=== PATIENT | female | born 1990 | race Caucasian/White ===

== ENCOUNTER 2017-10-29 13:37 | Emergency (ER) | payer BC ==
[2017-10-29] MEDS ORDERED: MAG HYDROX/AL HYDROX/SIMETH 30 ML, HYOSCYAMINE ELIXIR 10 ML, CIMETIDINE HCL 300 MG, LID... PO STA ×4 (14:15)
--- NOTE | 2017-10-29 14:19 | ED ---
Abdominal Pain HPI - General Chief Complaint: Abdominal Pain Stated Complaint: abdominal pain Time Seen by Provider: 10/29/17 14:07 Source: patient Mode of arrival: ambulatory Limitations: no limitations - History of Present Illness Initial Comments: This 27-year-old white female presents with a complaint of some midepigastric abdominal pain which started at approximately 6 AM. She said that it has been intermittent in nature and feels like contractions. She denies any nausea, vomiting, diarrhea, constipation, urinary frequency, urgency, dysuria, hematuria. She denies any fevers or chills. She denies any previous similar incidents. She states that it is somewhat worse with food intake. She denies any nonsteroidal anti-inflammatory use or alcohol use. She has not changed her diet recently. She did try some Maalox with limited relief. No other complaints or modifying factors. - Related Data Previous Rx's Medication Instructions Recorded Omeprazole [PriLOSEC] 40 mg PO DAILY #30 capsule. 10/29/17 Ondansetron [Zofran ODT] 8 mg PO Q8HR PRN #12 tab 10/29/17 traMADol HCl [Ultram] 50 - 100 mg PO Q6H PRN #15 tab 10/29/17 Allergies Allergy/AdvReac Type Severity Reaction Status Date / Time No Known Allergies Allergy Verified 10/29/17 14:22 Review of Systems ROS Statement: Those systems with pertinent positive or pertinent negative responses have been documented in the HPI. ROS Other: All systems not noted in ROS Statement are negative. Past Medical History Past Medical History: No Reported History History of Any Multi-Drug Resistant Organisms: None Reported Past Surgical History: No Surgical Hx Reported Past Anesthesia/Blood Transfusion Reactions: No Reported Reaction Past Psychological History: No Psychological Hx Reported Smoking Status: Never smoker Past Alcohol Use History: None Reported Past Drug Use History: None Reported - Past Family History Mother Family Medical History: No Reported History General Exam - General Exam Comments Initial Comments: GENERAL: The patient is well nourished and well hydrated. VITAL SIGNS: Heart rate, blood pressure, respiratory rate reviewed as recorded in nurse's notes. EYES: Pupils are round and reactive. Extraocular movements are intact. No conjunctival / lid redness or swelling. ENT: No external evidence of injury, swelling, or ecchymosis. Airway is patent. Throat is clear. NECK: Nontender. No swelling or evidence of injury. No subcutaneous emphysema. Trachea is midline. No thyroid mass. HEART: Regular rate and rhythm. Good peripheral pulses. LUNGS/CHEST: Breath sounds clear and equal bilaterally. No rales, rhonchi, or wheezes. No ecchymosis, subcutaneous emphysema, or tenderness. ABDOMEN: There is mild tenderness in the midepigastric region. No palpable masses or organomegaly. No peritoneal signs. No abdominal wall swelling or ecchymosis. No flank tenderness noted. EXTREMITIES: No extremity tenderness. Normal muscle tone and function. No thoracolumbar tenderness. NEUROLOGIC: Sensation is grossly intact. Cranial nerve exam reveals face is symmetrical, tongue is midline, speech is clear. SKIN: No abrasions or ecchymosis is noted. No induration or masses noted. PSYCHIATRIC: Alert and oriented. Appropriate behavior and judgment. Limitations: no limitations Course Vital Signs 10/29/17 10/29/17 13:39 14:40 Temperature 98.0 F Pulse Rate 64 54 L Respiratory 20 Rate Blood Pressure 135/92 118/67 O2 Sat by Pulse 100 99 Oximetry Medical Decision Making - Medical Decision Making The patient was seen and examined. All diagnostics are reviewed. She does receive a GI cocktail. The differential would include such things as gastritis , gastroesophageal reflux disorder, peptic ulcer disease, pancreatitis, gallbladder disease. The laboratory overall is fairly unremarkable with a slight elevation of the sodium at 146. The gallbladder ultrasound does show a contracted gallbladder but the radiologist as suspect multiple stones. There is no gallbladder wall thickening or dilated common bile duct. It is felt as though her symptoms very likely are related to gallstones. The possibility of a gastritis is certainly possible as well. She is in no distress on recheck. It is felt as though she would benefit from follow-up on an outpatient basis with general surgery and will be referred. She understands agrees with findings disposition and leaves in no distress. Return parameters are discussed. Diet therapy is discussed. - Lab Data Result diagrams: 10/29/17 14:28 10/29/17 14:28 Lab Results 10/29/17 10/29/17 10/29/17 Range/Units 14:28 14:28 14:28 WBC 11.8 H (3.8-10.6) k/uL RBC 5.00 (3.80-5.40) m/uL Hgb 13.5 (11.4-16.0) gm/dL Hct 42.9 (34.0-46.0) % MCV 85.8 (80.0-100.0) fL MCH 27.1 (25.0-35.0) pg MCHC 31.6 (31.0-37.0) g/dL RDW 13.7 (11.5-15.5) % Plt Count 454 H (150-450) k/uL Neutrophils % 75 % Lymphocytes % 18 % Monocytes % 3 % Eosinophils % 2 % Basophils % 0 % Neutrophils # 8.9 H (1.3-7.7) k/uL Lymphocytes # 2.1 (1.0-4.8) k/uL Monocytes # 0.4 (0-1.0) k/uL Eosinophils # 0.3 (0-0.7) k/uL Basophils # 0.1 (0-0.2) k/uL Sodium 146 H (137-145) mmol/L Potassium 4.3 (3.5-5.1) mmol/L Chloride 105 (98-107) mmol/L Carbon Dioxide 25 (22-30) mmol/L Anion Gap 16 mmol/L BUN 12 (7-17) mg/dL Creatinine 0.80 (0.52-1.04) mg/dL Est GFR (CKD-EPI)AfAm >90 (>60 ml/min/1.73 sqM) Est GFR (CKD-EPI)NonAf >90 (>60 ml/min/1.73 sqM) Glucose 80 (74-99) mg/dL Calcium 11.0 H (8.4-10.2) mg/dL Total Bilirubin 0.4 (0.2-1.3) mg/dL AST 23 (14-36) U/L ALT 18 (9-52) U/L Alkaline Phosphatase 54 (38-126) U/L Total Protein 9.1 H (6.3-8.2) g/dL Albumin 5.4 H (3.5-5.0) g/dL Amylase 84 (30-110) U/L Lipase 111 (23-300) U/L Urine Color Urine Appearance (Clear) Urine pH (5.0-8.0) Ur Specific [place] (1.001-1.035) Urine Protein (Negative) Urine Glucose (UA) (Negative) Urine Ketones (Negative) Urine Blood (Negative) Urine Nitrite (Negative) Urine Bilirubin (Negative) Urine Urobilinogen (<2.0) mg/dL Ur Leukocyte Esterase (Negative) Urine HCG, Qual Not Detected (Not Detectd) 10/29/17 Range/Units 14:28 WBC (3.8-10.6) k/uL RBC (3.80-5.40) m/uL Hgb (11.4-16.0) gm/dL Hct (34.0-46.0) % MCV (80.0-100.0) fL MCH (25.0-35.0) pg MCHC (31.0-37.0) g/dL RDW (11.5-15.5) % Plt Count (150-450) k/uL Neutrophils % % Lymphocytes % % Monocytes % % Eosinophils % % Basophils % % Neutrophils # (1.3-7.7) k/uL Lymphocytes # (1.0-4.8) k/uL Monocytes # (0-1.0) k/uL Eosinophils # (0-0.7) k/uL Basophils # (0-0.2) k/uL Sodium (137-145) mmol/L Potassium (3.5-5.1) mmol/L Chloride (98-107) mmol/L Carbon Dioxide (22-30) mmol/L Anion Gap mmol/L BUN (7-17) mg/dL Creatinine (0.52-1.04) mg/dL Est GFR (CKD-EPI)AfAm (>60 ml/min/1.73 sqM) Est GFR (CKD-EPI)NonAf (>60 ml/min/1.73 sqM) Glucose (74-99) mg/dL Calcium (8.4-10.2) mg/dL Total Bilirubin (0.2-1.3) mg/dL AST (14-36) U/L ALT (9-52) U/L Alkaline Phosphatase (38-126) U/L Total Protein (6.3-8.2) g/dL Albumin (3.5-5.0) g/dL Amylase (30-110) U/L Lipase (23-300) U/L Urine Color Light Yellow Urine Appearance Clear (Clear) Urine pH 6.0 (5.0-8.0) Ur Specific [place] 1.011 (1.001-1.035) Urine Protein Negative (Negative) Urine Glucose (UA) Negative (Negative) Urine Ketones Negative (Negative) Urine Blood Negative (Negative) Urine Nitrite Negative (Negative) Urine Bilirubin Negative (Negative) Urine Urobilinogen <2.0 (<2.0) mg/dL Ur Leukocyte Esterase Negative (Negative) Urine HCG, Qual (Not Detectd) Disposition Clinical Impression: Abdominal pain, Gallstones Disposition: HOME SELF-CARE Condition: Good Instructions: Gallstones (ED), Abdominal Pain (ED) Prescriptions: Omeprazole [PriLOSEC] 40 mg PO DAILY #30 capsule. Ondansetron [Zofran ODT] 8 mg PO Q8HR PRN #12 tab PRN Reason: Nausea traMADol HCl [Ultram] 50 - 100 mg PO Q6H PRN #15 tab PRN Reason: Pain Referrals: None,Stated [Primary Care Provider] - 1-2 days Time of Disposition: 16:01
[2017-10-29 14:43] LABS: Appearance,Urine Clear (Clear); Basophils # (A) 0.1 k/uL (0-0.2); Basophils % (A) 0 %; Bilirubin,Urine Negative (Negative); Blood,Urine Negative (Negative); Color,Urine Light Yellow; Eosinophils # (A) 0.3 k/uL (0-0.7); Eosinophils % (A) 2 %; Glucose,Urine (UA) Negative (Negative); HCT 42.9 % (34.0-46.0); HGB 13.5 gm/dL (11.4-16.0); Ketones,Urine Negative (Negative); Leukocyte Esterase,Urine Negative (Negative); Lymphocytes # (A) 2.1 k/uL (1.0-4.8); Lymphocytes % (A) 18 %; MCH 27.1 pg (25.0-35.0); MCHC 31.6 g/dL (31.0-37.0); MCV 85.8 fL (80.0-100.0); Mean Platelet Volume 7.3; Monocytes # (A) 0.4 k/uL (0-1.0); Monocytes % (A) 3 %; Neutrophils # (A) 8.9 k/uL (1.3-7.7); Neutrophils % (A) 75 %; Platelet Count 454 k/uL (150-450); Protein,Urine Negative (Negative); RDW 13.7 % (11.5-15.5); Specific Gravity,Urine 1.011 (1.001-1.035); Urobilinogen,Urine <2.0 mg/dL (<2.0); WBC 11.8 k/uL (3.8-10.6)
[2017-10-29 15:03] LABS: ALT 18 U/L (9-52); AST 23 U/L (14-36); Albumin 5.4 g/dL (3.5-5.0); Alkaline Phosphatase 54 U/L (38-126); Amylase 84 U/L (30-110); Anion Gap 16 mmol/L; Blood Urea Nitrogen 12 mg/dL (7-17); Carbon Dioxide 25 mmol/L (22-30); Chloride 105 mmol/L (98-107); Glucose 80 mg/dL (74-99); Lipase 111 U/L (23-300); Potassium 4.3 mmol/L (3.5-5.1); Sodium 146 mmol/L (137-145); Total Bilirubin 0.4 mg/dL (0.2-1.3); Total Protein 9.1 g/dL (6.3-8.2)
--- NOTE | 2017-10-29 15:40 | US ---
EXAMINATION TYPE: US gallbladder DATE OF EXAM: 10/29/2017 COMPARISON: NONE CLINICAL HISTORY: Pain; EC patient with epigastric pain today; patient stated ate at 1300, tuna and l ettuce, thus, gallbladder not NPO for assessment EXAM MEASUREMENTS: Liver Length: 12.9 cm Gallbladder Wall: 0.2 cm CBD: 0.1 cm Right Kidney: 8.3 x 4.9 x 3.7 cm Pancreas: wnl Liver: wnl Gallbladder: may be full of shadowing stones (PORSHA sign) vs. echogenic, and shadowing internal debris in non fasting state and noted in supine and LLD positions Evidence for sonographic El's sign: Yes CBD: wnl Right Kidney: wnl IMPRESSION: 1. The gallbladder appears decompressed and there is shadowing from the gallbladder fossa this can oc casionally be seen with a collapsed gallbladder with numerous shadowing stones. 2. No evidence of biliary obstruction.
--- NOTE | 2017-10-29 16:04 | ED ---
Medical Decision Making - Lab Data Result diagrams: 10/29/17 14:28 10/29/17 14:28 Lab Results 10/29/17 10/29/17 10/29/17 Range/Units 14:28 14:28 14:28 WBC 11.8 H (3.8-10.6) k/uL RBC 5.00 (3.80-5.40) m/uL Hgb 13.5 (11.4-16.0) gm/dL Hct 42.9 (34.0-46.0) % MCV 85.8 (80.0-100.0) fL MCH 27.1 (25.0-35.0) pg MCHC 31.6 (31.0-37.0) g/dL RDW 13.7 (11.5-15.5) % Plt Count 454 H (150-450) k/uL Neutrophils % 75 % Lymphocytes % 18 % Monocytes % 3 % Eosinophils % 2 % Basophils % 0 % Neutrophils # 8.9 H (1.3-7.7) k/uL Lymphocytes # 2.1 (1.0-4.8) k/uL Monocytes # 0.4 (0-1.0) k/uL Eosinophils # 0.3 (0-0.7) k/uL Basophils # 0.1 (0-0.2) k/uL Sodium 146 H (137-145) mmol/L Potassium 4.3 (3.5-5.1) mmol/L Chloride 105 (98-107) mmol/L Carbon Dioxide 25 (22-30) mmol/L Anion Gap 16 mmol/L BUN 12 (7-17) mg/dL Creatinine 0.80 (0.52-1.04) mg/dL Est GFR (CKD-EPI)AfAm >90 (>60 ml/min/1.73 sqM) Est GFR (CKD-EPI)NonAf >90 (>60 ml/min/1.73 sqM) Glucose 80 (74-99) mg/dL Calcium 11.0 H (8.4-10.2) mg/dL Total Bilirubin 0.4 (0.2-1.3) mg/dL AST 23 (14-36) U/L ALT 18 (9-52) U/L Alkaline Phosphatase 54 (38-126) U/L Total Protein 9.1 H (6.3-8.2) g/dL Albumin 5.4 H (3.5-5.0) g/dL Amylase 84 (30-110) U/L Lipase 111 (23-300) U/L Urine Color Urine Appearance (Clear) Urine pH (5.0-8.0) Ur Specific [place] (1.001-1.035) Urine Protein (Negative) Urine Glucose (UA) (Negative) Urine Ketones (Negative) Urine Blood (Negative) Urine Nitrite (Negative) Urine Bilirubin (Negative) Urine Urobilinogen (<2.0) mg/dL Ur Leukocyte Esterase (Negative) Urine HCG, Qual Not Detected (Not Detectd) 10/29/17 Range/Units 14:28 WBC (3.8-10.6) k/uL RBC (3.80-5.40) m/uL Hgb (11.4-16.0) gm/dL Hct (34.0-46.0) % MCV (80.0-100.0) fL MCH (25.0-35.0) pg MCHC (31.0-37.0) g/dL RDW (11.5-15.5) % Plt Count (150-450) k/uL Neutrophils % % Lymphocytes % % Monocytes % % Eosinophils % % Basophils % % Neutrophils # (1.3-7.7) k/uL Lymphocytes # (1.0-4.8) k/uL Monocytes # (0-1.0) k/uL Eosinophils # (0-0.7) k/uL Basophils # (0-0.2) k/uL Sodium (137-145) mmol/L Potassium (3.5-5.1) mmol/L Chloride (98-107) mmol/L Carbon Dioxide (22-30) mmol/L Anion Gap mmol/L BUN (7-17) mg/dL Creatinine (0.52-1.04) mg/dL Est GFR (CKD-EPI)AfAm (>60 ml/min/1.73 sqM) Est GFR (CKD-EPI)NonAf (>60 ml/min/1.73 sqM) Glucose (74-99) mg/dL Calcium (8.4-10.2) mg/dL Total Bilirubin (0.2-1.3) mg/dL AST (14-36) U/L ALT (9-52) U/L Alkaline Phosphatase (38-126) U/L Total Protein (6.3-8.2) g/dL Albumin (3.5-5.0) g/dL Amylase (30-110) U/L Lipase (23-300) U/L Urine Color Light Yellow Urine Appearance Clear (Clear) Urine pH 6.0 (5.0-8.0) Ur Specific [place] 1.011 (1.001-1.035) Urine Protein Negative (Negative) Urine Glucose (UA) Negative (Negative) Urine Ketones Negative (Negative) Urine Blood Negative (Negative) Urine Nitrite Negative (Negative) Urine Bilirubin Negative (Negative) Urine Urobilinogen <2.0 (<2.0) mg/dL Ur Leukocyte Esterase Negative (Negative) Urine HCG, Qual (Not Detectd) Disposition Clinical Impression: Abdominal pain, Gallstones Disposition: HOME SELF-CARE Condition: Good Instructions: Gallstones (ED), Abdominal Pain (ED) Prescriptions: Omeprazole [PriLOSEC] 40 mg PO DAILY #30 capsule. Ondansetron [Zofran ODT] 8 mg PO Q8HR PRN #12 tab PRN Reason: Nausea traMADol HCl [Ultram] 50 - 100 mg PO Q6H PRN #15 tab PRN Reason: Pain Referrals: None,Stated [Primary Care Provider] - 1-2 days Issac Mares MD [STAFF PHYSICIAN] - As Soon As Possible
[2017-10-29 16:17] VITALS: BP 129/92; PULSE 58; RESP 16; TEMP 98.4
== END 2017-10-29 16:17 | disposition home or self-care (01) ==
LOC: EC 13:37
DX: K80.80 Other cholelithiasis without obstruction (principal)
CPT/HCPCS: 36415; 76705; 80053; 81003; 81025; 82150; 83690; 85025; 99284

== ENCOUNTER 2017-12-27 10:05 | Day surgery (SDC) | payer BC ==
[2017-12-24 15:43] VITALS: BMI 23.7
[~2017-12-27 10:05] MED LIST: DEXAMETHASONE SOD PHOSPHATE 10 MG/ML 1 ML VIAL IV ONE; HEPARIN SODIUM,PORCINE 5,000 UNIT/ML 1 ML VIAL SQ ONE; LACTATED RINGERS 1,000 ML IV SCH; LIDOCAINE 1% 20 ML VIAL (10MG/ML) FOR IV START INTRADERMA PRN; MIDAZOLAM 2 MG/2 ML VIAL IV PRN; SCOPOLAMINE 1.5MG/72HR PATCH TRANSDERM ONE; ceFAZolin IN SWFI 2 GM/20 ML SYRINGE IVP ONE; fentaNYL (PF) 50 MCG/ML 2 ML AMP IV PRN
[2017-12-27] MEDS ORDERED: ONDANSETRON 4 MG/2 ML VIAL IVP ONE (11:26)
[2017-12-27] MEDS ORDERED: fentaNYL (PF) 50 MCG/ML 2 ML AMP ONE (11:33)
[2017-12-27] MEDS ORDERED: GLYCOPYRROLATE 0.2 MG/ML 2 ML VIAL ONE (11:33)
[2017-12-27] MEDS ORDERED: LIDOCAINE 1% INJ 10MG/ML (20 ML MDV) ONE (11:33)
[2017-12-27] MEDS ORDERED: NEOSTIGMINE 1 MG/ML 10 ML VIAL ONE (11:33)
[2017-12-27] MEDS ORDERED: ROCURONIUM BROMIDE 10 MG/ML 10 ML VIAL IV ONE (11:33)
[2017-12-27] MEDS ORDERED: SUCCINYLCHOLINE CHLORIDE 100 MG/5 ML SYR IV ONE (11:33)
[2017-12-27] MEDS ORDERED: KETOROLAC 30 MG/ML 1 ML VIAL ONE (11:33)
[2017-12-27] MEDS ORDERED: MIDAZOLAM 2 MG/2 ML VIAL ONE (11:33)
[2017-12-27] MEDS ORDERED: PROPOFOL 10 MG/ML 20 ML VIAL IV ONE (11:33)
[2017-12-27] MEDS ORDERED: MORPHINE SULFATE 10 MG/ML SYRINGE ONE (11:33)
[2017-12-27] MEDS ORDERED: BUPIVACAINE (PF) 0.25% 30 ML VIAL SQ ONE (11:46)
[2017-12-27] MEDS ORDERED: IV FLUID CONTINUATION 1,000 ML IV ONE ×2 (12:46)
[2017-12-27 12:48] VITALS: RESP 16; TEMP 98
[2017-12-27] MEDS ORDERED: NALOXONE 0.4 MG/ML 1 ML VIAL IV PRN (12:52)
[2017-12-27] MEDS ORDERED: traMADol 50 MG TAB PO PRN (12:52)
--- NOTE | 2017-12-27 12:54 | P.OP ---
Date of Procedure: 12/27/17 Procedure(s) Performed: PREOPERATIVE DIAGNOSIS: Chronic cholecystitis POSTOPERATIVE DIAGNOSIS: Same PROCEDURE: Laparoscopic cholecystectomy SURGEON: Shabana EBL: Minimal see anesthesia record ANESTHESIA: Gen. COMPLICATIONS: None OPERATIVE PROCEDURE: The patient was brought and placed on the operating room table in the supine position. The patient was placed under general anesthesia at that time. The abdomen was prepped and draped in the usual sterile fashion. A small vertical infraumbilical incision was made. The fascia was grasped with the Sascha forceps. The fascia was retracted anteriorly. The Veress needle was advanced into the peritoneal cavity. The saline drop test was normal. Insufflation took place up to 15 mmHg. A 5 mm optical trocar was advanced and the peritoneal cavity. 2 additional 5 mm trochars were placed in the right upper quadrant under direct visualization. A 10 mm trocar was advanced into the epigastric incision site. The gallbladder was retracted superiorly and laterally. The peritoneum overlying the infundibulum was bluntly dissected. The patient's cystic duct was visualized. The junction between the cystic duct common and hepatic duct was identified. The cystic duct was then divided after placement of 3 10 mm clips on the patient's side and one on the specimen side. The cystic artery was identified and clipped as well. A small vessel was seen along the gallbladder fossa and clipped as well. The gallbladder was then removed from the liver bed using electrocautery. The gallbladder was then removed from the epigastric trocar site with an Endo Catch bag. The gallbladder fossa was irrigated with saline. There was no evidence of any bleeding or biliary drainage seen. The trochars were then removed. The fascia at the 10 millimeter site was closed using a figure-of- eight 0 Vicryl stitch. The skin at all 4 sites was closed using a 4-0 Monocryl stitch. At the end of this procedure the sponge and needle counts were correct. DISPOSITION: Stable to the recovery room
[2017-12-27] MEDS ORDERED: PROMETHAZINE INJ 25 MG/ML 1 ML VIAL IVPB ONE (13:49)
[2017-12-27] MEDS ORDERED: LACTATED RINGERS 1,000 ML IV ONE (14:13)
[2017-12-27 14:51] VITALS: BP 125/82; PULSE 59
== END 2017-12-27 15:27 | disposition home or self-care (01) ==
LOC: OR 10:05
PROVIDERS: ATTEND Surgery
DX: K80.10 Calculus of gallbladder with chronic cholecystitis without obstruction (principal); K21.9 Gastro-esophageal reflux disease without esophagitis; Z79.891 Long term (current) use of opiate analgesic; Z79.899 Other long term (current) drug therapy
CPT/HCPCS: 88304; 47562; J2250; J1644; J1100; J2550; J2710; J2270; J2405; J2001; J3010; J1885; J0330; J2704; J0690

== ENCOUNTER 2019-03-27 08:57 | Emergency (ER) | payer BC ==
[2019-03-27 09:11] VITALS: BP 124/92; PULSE 60; RESP 18; TEMP 98.5
[2019-03-27] MEDS ORDERED: PROPARACAINE 0.5% OPHTH DROPS 15 ML BTL LEFT EYE STA (09:22)
--- NOTE | 2019-03-27 09:37 | ED ---
Eye Problem HPI - General Chief complaint: Eye Problems Stated complaint: eye problems Time Seen by Provider: 03/27/19 09:11 Source: patient, RN notes reviewed Mode of arrival: ambulatory Limitations: no limitations - History of Present Illness Initial comments: 29-year-old female presents emergency Department with chief complaint of left eye irritation. Patient states started on Saturday. Patient states that she noticed some irritation in which she had her coworker look in her eye and was told that she had a tear and that should he within a day or 2. Patient states that she has now has some swelling around the eye and which they advised to come emergency department. She denies any blurred vision, double vision, pain with ocular movement. Patient denies any fevers or chills she does work glasses no contact lens wearing patient denies any drainage or tearing denies any photophobia. - Related Data Previous Rx's Medication Instructions Recorded Omeprazole [PriLOSEC] 40 mg PO DAILY #30 capsule. 10/29/17 Ondansetron [Zofran ODT] 8 mg PO Q8HR PRN #12 tab 10/29/17 traMADol HCl [Ultram] 50 - 100 mg PO Q6H PRN #15 tab 10/29/17 Allergies Allergy/AdvReac Type Severity Reaction Status Date / Time No Known Allergies Allergy Verified 12/24/17 15:15 Review of Systems ROS Statement: Those systems with pertinent positive or pertinent negative responses have been documented in the HPI. ROS Other: All systems not noted in ROS Statement are negative. Past Medical History Past Medical History: No Reported History Additional Past Medical History / Comment(s): OCCASIONAL MIGRAINE History of Any Multi-Drug Resistant Organisms: None Reported Past Surgical History: Cholecystectomy Past Anesthesia/Blood Transfusion Reactions: Motion Sickness Additional Past Anesthesia/Blood Transfusion Reaction / Comment(s): NO ANESTHES IA HX. Past Psychological History: No Psychological Hx Reported Smoking Status: Never smoker Past Alcohol Use History: None Reported Past Drug Use History: None Reported - Past Family History Mother Family Medical History: No Reported History General Exam Limitations: no limitations General appearance: alert, in no apparent distress Head exam: Present: atraumatic, normocephalic, normal inspection Eye exam: Present: PERRL, EOMI, periorbital swelling (Mild left inferior no erythema no tenderness), other (There is no area of erythema, sore-like area in the lower inner). Absent: normal appearance, scleral icterus, conjunctival injection, periorbital tenderness Pupils: Present: other (Fluorescein dye and Wood's lamp were used to evaluate the eye no uptake) ENT exam: Present: normal exam, mucous membranes moist, TM's normal bilaterally, normal external ear exam. Absent: normal oropharynx Neck exam: Present: normal inspection, full ROM. Absent: tenderness, meningismus, lymphadenopathy Respiratory exam: Present: normal lung sounds bilaterally. Absent: respiratory distress, wheezes, rales, rhonchi, stridor Cardiovascular Exam: Present: regular rate, normal rhythm, normal heart sounds. Absent: systolic murmur, diastolic murmur, rubs, gallop, clicks Neurological exam: Present: alert, oriented X3, CN II-XII intact Skin exam: Present: warm, dry, intact, normal color. Absent: rash Course Vital Signs 03/27/19 09:08 Temperature 98.5 F Pulse Rate 60 Respiratory 18 Rate Blood Pressure 124/92 O2 Sat by Pulse 100 Oximetry Medical Decision Making - Medical Decision Making 29-year-old female presents emergency from for left ideation. Patient has an internal or Imodium. Patient was started on eyedrops we did discuss warm compresses and follow-up with ophthalmology. Disposition Clinical Impression: Internal hordeolum of left eye Disposition: HOME SELF-CARE Condition: Stable Instructions (If sedation given, give patient instructions): [place] (ED) Additional Instructions: Use eyedrops 1 drop to left eye every 4 hours for 7 days. Please return to the Emergency Department if symptoms worsen or any other concerns. Is patient prescribed a controlled substance at d/c from ED?: No Referrals: Nora Alex DO [Primary Care Provider] - 1-2 days Time of Disposition: 09:39
[2019-03-27] MEDS ORDERED: TOBRAMYCIN 0.3% OPHTH DROPS 5 ML BTL LEFT EYE STA (09:39)
== END 2019-03-27 09:45 | disposition home or self-care (01) ==
LOC: EC 08:57
DX: H00.025 Hordeolum internum left lower eyelid (principal)
CPT/HCPCS: 99283

== ENCOUNTER 2021-03-03 14:44 | Outpatient (CLI) | payer BC ==
--- NOTE | 2021-04-28 17:28 | P.MSEPDOC ---
Presenting Problems - Arrival Data Date of Arrival on Unit: 03/03/21 Time of Arrival on Unit: 14:44 Mode of Transport: Ambulatory I agree with the RN Medical Screening Exam: Yes Case reviewed; plan agreed upon as documented in EMR&OBIX.: Yes Diagnosis: FALSE LABOR BEFORE 37 COMPLETED WEEKS OF GEST, THIRD TRI
== END 2021-03-03 15:48 | disposition home or self-care (01) ==
LOC: FBPOP 14:44
PROVIDERS: ATTEND Obstetrics & Gynecology
DX: O47.03 False labor before 37 completed weeks of gestation, third trimester (principal); Z3A.37 37 weeks gestation of pregnancy
CPT/HCPCS: 59025; 84112; 99213

== ENCOUNTER 2021-03-20 19:44 | Outpatient (CLI) | payer BC ==
[2021-03-20 21:12] VITALS: BP 131/74; PULSE 81; RESP 16; TEMP 97.5
--- NOTE | 2021-04-01 13:09 | P.MSEPDOC ---
Presenting Problems - Arrival Data Date of Arrival on Unit: 03/20/21 Time of Arrival on Unit: 19:44 Mode of Transport: Ambulatory - Complaint OB-Reason for Admission/Chief Complaint: Rule Out SROM Medical History - Information : 3 Para: 1 Term: 1 : 0 Abortions: Spontaneous or Elective: 0 Number of Living Children: 1 - Gestational Age Gestational Age by TOMMY (wks/days): 39 Weeks and 0 Days - History Complications: No Care Review of Systems - Review of Systems Constitutional: No problems Breast: No problems ENT: No problems Cardiovascular: No problems Respiratory: No problems Gastrointestinal: No problems Genitourinary: No problems Musculoskeletal: No problems Neurological: No problems Skin: No problems Vital Signs - Temperature Temperature: 97.5 F Temperature Source: Temporal Artery Scan - Pulse Right Brachial Pulse Rate: 81 Pulse Assessment Method: Automatic Cuff - Respirations Respiratory Rate: 16 Oxygen Delivery Method: Room Air - Blood Pressure Right Arm Blood Pressure: 131/74 Blood Pressure Mean: 93 Blood Pressure Source: Automatic Cuff Medical Screen Scoring - Cervical Exam Dilation (cm): 1 Effacement (%): 70 Station: -2 Membranes: Intact - Uterine Contractions Frequency From (mins): 0 Frequency To (mins): 0 Intensity: Absent Resting: Soft to palpation - Assessment - Baby A Baseline FHR: 130 Heart Rate - NICHD Category: Category I (Normal) Physician Notification - Physician Notified Physician Notified Date: 03/20/21 Physician Notified Time: 20:12 Physician: Angel Bragg Order Received: Yes - Notification Comment Comment: Negative amnisure, d/c home, iol on 03/23/21 Maternal Triage Index - Maternal Triage Index Presenting for scheduled procedure w/no complaint: No - Stat/Priority 1 Stat Priority 1: No - Urgent/Priority 2 Urgent Priority 2: No - Prompt/Priority 3 Prompt Priority 3: Yes Criteria Met for Priority 3: c/O SROM around 1700 Disposition - Disposition OB Disposition: Discharge to home, Written follow up instructions reviewed Discharge Date: 03/20/21 Discharge Time: 20:18 I agree with the RN Medical Screening Exam: Yes Case reviewed; plan agreed upon as documented in EMR&OBIX.: Yes Diagnosis: FALSE LABOR AT OR AFTER 37 COMPLETED WEEKS OF GESTATION
== END 2021-03-20 20:18 | disposition home or self-care (01) ==
LOC: FBPOP 19:44
PROVIDERS: ATTEND Obstetrics & Gynecology
DX: O47.1 False labor at or after 37 completed weeks of gestation (principal); Z3A.39 39 weeks gestation of pregnancy
CPT/HCPCS: 59025; 84112; 99213

== ENCOUNTER 2021-03-21 11:24 | Outpatient (CLI) | payer BC ==
[2021-03-21 12:57] VITALS: RESP 16; TEMP 98
--- NOTE | 2021-03-22 12:34 | P.MSEPDOC ---
Presenting Problems - Arrival Data Date of Arrival on Unit: 03/21/21 Time of Arrival on Unit: 11:24 Mode of Transport: Ambulatory - Complaint OB-Reason for Admission/Chief Complaint: Possible Onset of Labor Medical History - Information : 3 Para: 1 Term: 1 : 0 Abortions: Spontaneous or Elective: 0 Number of Living Children: 1 - Gestational Age Gestational Age by TOMMY (wks/days): 39 Weeks and 1 Days Review of Systems - Review of Systems Constitutional: No problems Breast: No problems ENT: No problems Cardiovascular: No problems Respiratory: No problems Gastrointestinal: No problems Genitourinary: No problems Musculoskeletal: No problems Neurological: No problems Skin: No problems Vital Signs - Temperature Temperature: 98.0 F Temperature Source: Temporal Artery Scan - Respirations Respiratory Rate: 16 Oxygen Delivery Method: Room Air O2 Sat by Pulse Oximetry: 99 Medical Screen Scoring - Cervical Exam Dilation (cm): 2.5 Effacement (%): 80 Station: -2 Membranes: Intact - Uterine Contractions Resting: Soft to palpation - Assessment - Baby A Baseline FHR: 120 Heart Rate - NICHD Category: Category I (Normal) NST: Reactive Physician Notification - Physician Notified Physician Notified Date: 03/21/21 Physician Notified Time: 12:35 Physician: Therese Irwin Order Received: Yes (discharge hime with instructions) Maternal Triage Index - Maternal Triage Index Presenting for scheduled procedure w/no complaint: No - Stat/Priority 1 Stat Priority 1: No - Urgent/Priority 2 Urgent Priority 2: No - Prompt/Priority 3 Prompt Priority 3: No - Non-Urgent/Priority 4 Non-Urgent Priority 4: Yes Criteria Met for Priority 4: Dr Irwin notified of current dilation and no chnage after an hour. Pt also states has only felt 2 ctxs, since being at the hospital, none on monitor. Disposition - Disposition OB Disposition: Discharge to home Discharge Date: 03/21/21 Discharge Time: 12:40 I agree with the RN Medical Screening Exam: Yes Case reviewed; plan agreed upon as documented in EMR&OBIX.: Yes Diagnosis: FALSE LABOR AT OR AFTER 37 COMPLETED WEEKS OF GESTATION
== END 2021-03-21 12:40 | disposition home or self-care (01) ==
LOC: FBPOP 11:24
PROVIDERS: ATTEND Obstetrics & Gynecology
DX: O47.1 False labor at or after 37 completed weeks of gestation (principal); Z3A.39 39 weeks gestation of pregnancy
CPT/HCPCS: 59025; 99213

== ENCOUNTER 2021-03-21 20:18 | Outpatient (CLI) | payer BC ==
[2021-03-21 21:55] VITALS: BP 128/82; PULSE 79; RESP 16; TEMP 96.9
--- NOTE | 2021-04-10 08:31 | P.MSEPDOC ---
Presenting Problems - Arrival Data Date of Arrival on Unit: 03/21/21 Time of Arrival on Unit: 20:18 Mode of Transport: Ambulatory - Complaint OB-Reason for Admission/Chief Complaint: Possible Onset of Labor Comment: Contractions every 4-5 minutes for the past 45 minutes. Pain 03/04 Medical History - Information : 3 Para: 1 Term: 1 : 0 Abortions: Spontaneous or Elective: 0 Number of Living Children: 1 - Gestational Age Gestational Age by TOMMY (wks/days): 39 Weeks and 1 Days - History Complications: No Care Review of Systems - Review of Systems Constitutional: No problems Breast: No problems ENT: No problems Cardiovascular: No problems Respiratory: No problems Gastrointestinal: No problems Genitourinary: No problems Musculoskeletal: No problems Neurological: No problems Skin: No problems Vital Signs - Temperature Temperature: 96.9 F Temperature Source: Temporal Artery Scan - Pulse Right Brachial Pulse Rate: 79 Pulse Assessment Method: Automatic Cuff - Respirations Respiratory Rate: 16 Oxygen Delivery Method: Room Air - Blood Pressure Right Arm Blood Pressure: 128/82 Blood Pressure Mean: 97 Blood Pressure Source: Automatic Cuff Medical Screen Scoring - Cervical Exam Dilation (cm): 2.5 Effacement (%): 80 Station: -2 Membranes: Intact - Uterine Contractions Frequency From (mins): 3 Frequency To (mins): 8 Duration From (seconds): 60 Duration To (seconds): 110 Intensity: Moderate Resting: Soft to palpation - Assessment - Baby A Baseline FHR: 135 Heart Rate - NICHD Category: Category I (Normal) Physician Notification - Physician Notified Physician Notified Date: 03/21/21 Physician Notified Time: 20:47 Physician: Marcelle Hernandez New Order Received: Yes - Notification Comment Comment: D/c home if not cervial change. Pt iol on 03/23/21 Maternal Triage Index - Maternal Triage Index Presenting for scheduled procedure w/no complaint: No - Stat/Priority 1 Stat Priority 1: No - Urgent/Priority 2 Urgent Priority 2: No - Prompt/Priority 3 Prompt Priority 3: No - Non-Urgent/Priority 4 Non-Urgent Priority 4: Yes Criteria Met for Priority 4: Contractions every 4-5 minutes for the past 45 minutes. Pain 03/04 - Scheduled/Requesting Priority 5 Scheduled/Requesting Priority 5: No Disposition - Disposition OB Disposition: Discharge to home, Written follow up instructions reviewed Discharge Date: 03/21/21 Discharge Time: 21:30 I agree with the RN Medical Screening Exam: Yes Case reviewed; plan agreed upon as documented in EMR&OBIX.: Yes Diagnosis: PRIMARY INADEQUATE CONTRACTIONS
== END 2021-03-21 21:30 | disposition home or self-care (01) ==
LOC: FBPOP 20:18
PROVIDERS: ATTEND Obstetrics & Gynecology
DX: O47.9 False labor, unspecified (principal); Z3A.39 39 weeks gestation of pregnancy
CPT/HCPCS: 59025; 99213

== ENCOUNTER 2021-03-21 23:35 | Inpatient (IN) | payer BC ==
[2021-03-21] MEDS ORDERED: LACTATED RINGERS 1,000 ML BAG IV ONE (23:56)
[2021-03-22 07:29] LABS: Basophils % (A) 0 %; Eosinophils # (A) 0.1 k/uL (0-0.7); Eosinophils % (A) 0 %; HCT 40.1 % (34.0-46.0); HGB 13.6 gm/dL (11.4-16.0); Lymphocytes # (A) 1.4 k/uL (1.0-4.8); Lymphocytes % (A) 8 %; MCH 32.5 pg (25.0-35.0); MCHC 33.8 g/dL (31.0-37.0); MCV 96.2 fL (80.0-100.0); Mean Platelet Volume 7.7; Monocytes # (A) 0.7 k/uL (0-1.0); Monocytes % (A) 4 %; Neutrophils # (A) 14.5 k/uL (1.3-7.7); Neutrophils % (A) 86 %; Platelet Count 333 k/uL (150-450); RBC 4.17 m/uL (3.80-5.40); RDW 13.5 % (11.5-15.5); WBC 16.8 k/uL (3.8-10.6)
[2021-03-22 08:05] VITALS: RESP 16
[2021-03-22] MEDS ORDERED: diphenhydrAMINE 50 MG/ML 1 ML VIAL IVP PRN ×2 (11:13)
[2021-03-22] MEDS ORDERED: diphenhydrAMINE 25 MG CAP PO PRN (11:13)
[2021-03-22] MEDS ORDERED: SIMETHICONE 80 MG CHEWABLE PO PRN (11:13)
[2021-03-22] MEDS ORDERED: LANOLIN CREAM 5 GM TUBE TOPICAL PRN (11:13)
[2021-03-22] MEDS ORDERED: ZOLPIDEM 5 MG TAB PO PRN (11:13)
[2021-03-22] MEDS ORDERED: ACETAMINOPHEN TAB 325 MG TAB PO PRN (11:13)
[2021-03-22] MEDS ORDERED: BENZOCAINE/MENTHOL SPRAY 1 GM/SPRAY AEROSOL TOPICAL PRN (11:13)
[2021-03-22] MEDS ORDERED: HYDROCORTISONE 2.5% RECTAL CREAM 30 GM TUBE RECTAL PRN (11:13)
[2021-03-22] MEDS ORDERED: diphenhydrAMINE 50 MG CAP PO PRN (11:13)
[2021-03-22] MEDS: IBUPROFEN 600 MG TAB PO SCH ×3 (11:22→23:06)
[2021-03-22] MEDS: SENNOSIDES-DOCUSATE SODIUM 1 EACH TAB PO SCH (20:58)
[2021-03-22] MEDS ORDERED: OXYTOCIN 30 UNITS/500 ML NS BAG IV ONE (23:59)
[2021-03-22] MEDS ORDERED: IBUPROFEN 600 MG TAB PO ONE (23:59)
[2021-03-23 06:26] LABS: Basophils % (A) 0 %; Eosinophils # (A) 0.1 k/uL (0-0.7); Eosinophils % (A) 1 %; HCT 36.2 % (34.0-46.0); HGB 12.1 gm/dL (11.4-16.0); Lymphocytes # (A) 2.4 k/uL (1.0-4.8); Lymphocytes % (A) 22 %; MCH 33.2 pg (25.0-35.0); MCHC 33.3 g/dL (31.0-37.0); MCV 99.8 fL (80.0-100.0); Mean Platelet Volume 8.2; Monocytes # (A) 0.6 k/uL (0-1.0); Monocytes % (A) 5 %; Neutrophils # (A) 7.7 k/uL (1.3-7.7); Neutrophils % (A) 70 %; Platelet Count 260 k/uL (150-450); RBC 3.63 m/uL (3.80-5.40); RDW 13.1 % (11.5-15.5)
--- NOTE | 2021-03-23 07:25 | P.HPOB ---
History of Present Illness H&P Date: 03/21/21 Chief Complaint: Labor A 11-year-old presented at 39 weeks and 2 days in active labor. Her cervix was 5-6 hours dilated, 100% effaced, -1 station. She is gideon every 2-4 minutes. heart tones 140 with moderate variability and reactive. Review of Systems All systems: negative Constitutional: Denies chills, Denies fever Eyes: denies blurred vision, denies pain Ears, nose, mouth and throat: Denies headache, Denies sore throat Cardiovascular: Denies chest pain, Denies shortness of breath Respiratory: Denies cough Gastrointestinal: Denies abdominal pain, Denies diarrhea, Denies nausea, Denies vomiting Genitourinary: Denies dysuria, Denies hematuria Musculoskeletal: Denies myalgias Integumentary: Denies pruritus, Denies rash Neurological: Denies numbness, Denies weakness Psychiatric: Denies anxiety, Denies depression Endocrine: Denies fatigue, Denies weight change Past Medical History Past Medical History: No Reported History Additional Past Medical History / Comment(s): OCCASIONAL MIGRAINE History of Any Multi-Drug Resistant Organisms: None Reported Past Surgical History: Cholecystectomy Past Anesthesia/Blood Transfusion Reactions: Motion Sickness Additional Past Anesthesia/Blood Transfusion Reaction / Comment(s): NO ANESTHESIA HX. Smoking Status: Never smoker - Past Family History Mother Family Medical History: No Reported History Medications and Allergies Home Medications Medication Instructions Recorded Confirmed Type Pnv No.95/Ferrous Fum/Folic AC 1 tab PO ONCE 03/03/21 03/21/21 History [ Multivitamin Tablet] Doxylamine Succinate [Unisom] 25 mg PO DAILY 03/20/21 03/21/21 History Allergies Allergy/AdvReac Type Severity Reaction Status Date / Time No Known Allergies Allergy Verified 03/22/21 06:23 Exam Osteopathic Statement: *. No significant issues noted on an osteopathic structural exam other than those noted in the History and Physical/Consult. Vital Signs Temp Pulse Resp BP Pulse Ox 03/22/21 23:42 98.2 F 58 L 16 125/81 03/22/21 16:00 97.9 F 69 16 117/64 99 03/22/21 12:00 98.4 F 64 16 111/65 99 03/22/21 08:00 98.7 F 70 16 126/76 97 Intake and Output 03/22/21 03/23/21 03/23/21 22:59 06:59 14:59 Other: # Voids 1 1 Heart: Regular rate and rhythm Lungs: Clear to auscultation bilaterally Abdomen: Soft, nontender Extremities: Negative Homans sign Results Result Diagrams: 03/23/21 05:59 Abnormal Lab Results - Last 24 Hours (Table) 03/21/21 03/23/21 Range/Units 23:58 05:59 WBC 16.8 H 11.0 H (3.8-10.6) k/uL RBC 3.63 L (3.80-5.40) m/uL Neutrophils # 14.5 H (1.3-7.7) k/uL Assessment and Plan (1) Normal labor Current Visit: Yes Status: Acute Code(s): O80 - ENCOUNTER FOR FULL-TERM UNCOMPLICATED DELIVERY; Z37.9 - OUTCOME OF DELIVERY, UNSPECIFIED SNOMED Code(s ): 42240521 Plan: 1. Admit to family place 2. Expectant management 3. Anticipate normal vaginal delivery
--- NOTE | 2021-03-23 07:27 | P.PROBDLV ---
Vaginal Delivery Note - . Vaginal Delivery Note: A 31-year-old presented at 39 weeks and 2 days in active labor. Her cervix was 5-6 hours dilated, 100% effaced, -1 station. She is gideon every 2-4 minutes. heart tones 140 with moderate variability and reactive. Amniotomy was performed at 0032, clear fluid noted. Her cervix was completely dilated at 1:04 AM. She pushed, delivered a viable female over intact perineum at 0107. Head delivered OA, anterior shoulder delivered gentle downward guidance followed by posterior shoulder and rest of body. Nose and mouth bulb suctioned, cord clamped and cut, placed on mother's abdomen. Apgars 8, 9, weight 7 lbs. 6 oz. Placenta delivered spontaneously, intact with three-vessel cord at 1:10 AM. Vagina, cervix, perineum inspected. No lacerations noted. Estimated blood loss 100 mL. Mother and baby in stable condition.
[2021-03-23] MEDS: IBUPROFEN 600 MG TAB PO SCH (07:58)
[2021-03-23] MEDS: SENNOSIDES-DOCUSATE SODIUM 1 EACH TAB PO SCH (07:59)
[2021-03-23 08:21] VITALS: BP 117/75; PULSE 63; TEMP 98.1
--- NOTE | 2021-03-23 08:47 | P.DS ---
Providers Date of admission: 03/21/21 23:35 Expected date of discharge: 03/23/21 Attending physician: Therese Irwin Primary care physician: Stated None Hospital Course: This is a 31-year-old female 3 para 1 at 39-2/7 weeks who presented in active labor. She delivered vaginally a viable female infant on 03/22/2021 with scores of 8 at 1 minute and 9 at 5 minutes and weight of 7 lbs. 6 oz. Her course has been uncomplicated. Lochia is decreasing. Her pain is well-controlled with ibuprofen. She is bottle feeding. Vital signs are stable. Abdomen is soft with fundus firm and nontender. Extremities show trace edema. Impression is status post vaginal delivery day #1. Plan is to discharge home today. Routine instructions are given. She is advised to follow up in the office in 6 weeks for a check and she is advised to call the office if she has any further questions or concerns prior to her appointment time. She will be given a prescription for ibuprofen. Procedures: Spontaneous vaginal delivery of a viable female infant on 03/22/2021 Patient Condition at Discharge: Stable Plan - Discharge Summary New Discharge Prescriptions: No Action Pnv No.95/Ferrous Fum/Folic AC [ Multivitamin Tablet] 1 tab PO ONCE Doxylamine Succinate [Unisom] 25 mg PO DAILY Discharge Medication List Pnv No.95/Ferrous Fum/Folic AC [ Multivitamin Tablet] 1 tab PO ONCE 03/03/21 [History] Doxylamine Succinate [Unisom] 25 mg PO DAILY 03/20/21 [History] Follow up Appointment(s)/Referral(s): Therese Irwin DO [Doctor of Osteopathic Medicine] - 05/04/21 4:00 pm Activity/Diet/Wound Care/Special Instructions: Instructions 1. Do not begin any exercise program for 3 weeks. 2. Do not resume sexual relations for 3 weeks or longer if uncomfortable. 3. You may take tub baths or showers at any time. 4. You may use tampons if desired after 3 weeks. 5. Keep the area of episiotomy (stitches) clean and dry. 6. If you are not nursing, wear a good fitting, supportive bra during the day and limit fluid intake for at least 1 week to prevent breast engorgement. 7. Call the office, [phone], within the next week to make appointment for your 6 week checkup if it has not already been made. 8. Report any of the following occurrences to the doctor promptly: a. Heavy, excessive bleeding b. Chills, fever c. Burning or frequency of urination d. Pain or redness and breasts if nursing e. Increasing pain or swelling in episiotomy (stitches). In addition to the above instructions, the following additional should be followed: 1. No heavy lifting or straining (exercising) until after 6 week checkup. 2. Keep abdominal incision clean and dry: You may wear a dressing if more comfortable. 3. Make office appointment for 10 days after going home or as instructed by her doctor. Discharge Disposition: HOME SELF-CARE
== END 2021-03-23 11:20 | disposition home or self-care (01) | DRG 807 ==
LOC: 4FBP 23:35
PROVIDERS: ADMIT Obstetrics & Gynecology; ATTEND Obstetrics & Gynecology
PROC: 10E0XZZ Delivery of Products of Conception, External Approach (ICD-10-PCS; principal; 2021-03-21)
PROC: 10907ZC Drainage of Amniotic Fluid, Therapeutic from Products of Conception, Via Natural or Artificial Opening (ICD-10-PCS; 2021-03-21)
PROC: 4A0HX4Z Measurement of Products of Conception, Cardiac Electrical Activity, External Approach (ICD-10-PCS; 2021-03-21)
DX: O80 Encounter for full-term uncomplicated delivery (principal); G43.909 Migraine, unspecified, not intractable, without status migrainosus; O99.353 Diseases of the nervous system complicating pregnancy, third trimester; Z37.0 Single live birth; Z3A.39 39 weeks gestation of pregnancy; Z90.49 Acquired absence of other specified parts of digestive tract
CPT/HCPCS: 85025; 86850; 86900; 86901; 99213